=== PATIENT | female | born 1985 | race Caucasian/White ===

== ENCOUNTER 2016-12-18 22:36 | Emergency (ER) | payer SELFPAY ==
--- NOTE | 2016-12-20 16:22 | ER ---
ADMIT: 12/18/2016 RM/LOC: ER [facility] MR#: [id number] [facility] [address] [place] [id number] JOSE OCHOAFER Davidson [address] [address] Emergency Room Report SEX: F AGE: 31 : 1985 DATE: 12/18/2016 PRIMARY CARE PHYSICIAN: Sloane Domingo MD in [place]. CHIEF COMPLAINT: Low back pain. HISTORY OF PRESENT ILLNESS: This is a pleasant 31-year-old, white female, who presents with acute worsening of her chronic low back pain. The patient states she was at work around 7:30 this evening when she began having increased pain just superior to her tailbone that she says radiates bilaterally to the ankle. Denies any recent injury. Does not recall any listing, turning, or twisting that could have provoked this. Describes the pain as an ache with the radiating pain to the ankle. She states that she felt her right thigh get "cold" at work. Denies any fever, chills, sweating, constipation, nausea, vomiting, loss of bowel or bladder, or saddle anesthesia. She says pain is worse with movement, has not found anything to relieve the pain. She states she does have anxiety and complains of some chest tightness. No shortness of breath. PAST MEDICAL HISTORY: Significant for diabetes, hypertension, chronic low back pain, sciatica, bipolar, depression, PTSD, borderline personality disorder, anxiety, panic attacks. COURSE IN THE EMERGENCY ROOM: The patient was seen and examined, significant for some midline low back pain radiating across into the upper gluteus muscle. Neurologically, sensation is intact to sharp and dull motors, normal and equal compared bilaterally, lower extremities. She was given 30 mg of Toradol IM and allowed to rest for about half an hour. Re-examination shows that her pain is much improved. She is comfortable returning home tonight. IMPRESSION: Low back pain. DISPOSITION: Encouraged that the patient continue to use Tylenol or ibuprofen as needed for pain. She is to continue activity as tolerated. Use ice or heat whichever she prefers. She is to follow up with Dr. Domingo for pain if not improved. Questions were sought and answered to the best of my ability and to the patient's satisfaction. She was discharged in stable condition. EDWARD Dailey / Moo Frye MD / xenia JOB #: [id number] CC: Moo Frye MD, Attending Physician Sloane Domingo MD, Family Physician
== END 2016-12-19 00:15 | disposition home or self-care (01) ==
LOC: ER 22:36
DX: M54.5 Low back pain (principal); I10 Essential (primary) hypertension; F32.9 Major depressive disorder, single episode, unspecified; E11.9 Type 2 diabetes mellitus without complications; Z88.8 Allergy status to other drugs, medicaments and biological substances

== ENCOUNTER 2017-01-02 01:20 | Emergency (ER) | payer SELFPAY ==
--- NOTE | 2017-01-02 07:01 | ER ---
ADMIT: 01/02/2017 RM/LOC: ER [facility] MR#: [id number] [facility] [address] [place] [id number] CAROLANN OCHOA [address] [address] Emergency Room Report SEX: F AGE: 31 : 1985 DATE: 01/02/2017 The patient is a 31-year-old female, morbidly obese, suffers from constipation, now cannot urinate. States her last good bowel movement was 3 days ago. Exam is remarkable for nontoxic, afebrile female. Bladder scan was 600 mL. Straight cath Dye returned 900 mL of urine. Urine shows less than 1 wbc. Negative dip. Advised MiraLax daily until good bowel movements. Follow up Dr. Perkins as needed. Moo Frye MD/ josel JOB #: [id number] CC: Moo Frye MD, Attending Physician Sloane Domingo MD, Family Physician
== END 2017-01-02 02:50 | disposition home or self-care (01) ==
LOC: ER 01:20
PROC: 0T9B30Z Drainage of Bladder with Drainage Device, Percutaneous Approach (ICD-10-PCS; principal; 2017-01-02)
DX: R33.9 Retention of urine, unspecified (principal); K59.00 Constipation, unspecified; F17.210 Nicotine dependence, cigarettes, uncomplicated; F31.9 Bipolar disorder, unspecified; I10 Essential (primary) hypertension; E11.9 Type 2 diabetes mellitus without complications; J45.909 Unspecified asthma, uncomplicated; Z88.8 Allergy status to other drugs, medicaments and biological substances; Z90.89 Acquired absence of other organs; Z79.899 Other long term (current) drug therapy

== ENCOUNTER 2017-02-04 18:23 | Emergency (ER) | payer OTHER ==
--- NOTE | 2017-02-19 15:51 | ER ---
ADMIT: 02/04/2017 RM/LOC: ER [facility] MR#: [id number] [address] [id number] CAROLANN OCHOA [address] [address] Emergency Room Report SEX: F AGE: 31 : 1985 DATE: 02/04/2017 This 31-year-old, morbidly obese female rolled her ankle at work yesterday. See T-sheet for history and physical. There is no swelling noted, no deformity, no contusions. X-rays are pending at time of this dictation. We anticipate them being negative. The patient diagnosed with ankle pain, will be given an Juan Carlos wrap, and encouraged to ice and elevate it, use ibuprofen, Motrin for pain. DIAGNOSIS: Ankle pain. Geronimo Garcia MD/ xenia JOB #: [id number] CC: Chang Lopez MD, Attending Physician
== END 2017-02-04 19:25 | disposition home or self-care (01) ==
LOC: ER 18:23
DX: M25.572 Pain in left ankle and joints of left foot (principal); I10 Essential (primary) hypertension; F17.210 Nicotine dependence, cigarettes, uncomplicated; E11.9 Type 2 diabetes mellitus without complications; F41.9 Anxiety disorder, unspecified; E66.01 Morbid (severe) obesity due to excess calories; Z79.84 Long term (current) use of oral hypoglycemic drugs; Z79.899 Other long term (current) drug therapy; J45.909 Unspecified asthma, uncomplicated; F31.9 Bipolar disorder, unspecified; Z90.89 Acquired absence of other organs; X58.XXXA Exposure to other specified factors, initial encounter